=== PATIENT | male | born 1985 | race Two or more races ===

== ENCOUNTER 2018-01-07 05:01 | Emergency (ER) | payer SELFPAY ==
[2018-01-07 05:24] VITALS: BP 131/89
[2018-01-07] MEDS ORDERED: TRANEXAMIC ACID INJ/PF 1,000 MG/10 ML SDV IV PRN ×3 (06:37→08:01)
--- NOTE | 2018-01-07 06:37 | ER Document Report ---
ED Oral Problem - General Mode of Arrival: Ambulatory Information source: Patient TRAVEL OUTSIDE OF THE [place] IN LAST 30 DAYS: No - General Chief Complaint: Mouth Problem Stated Complaint: MOUTH PROBLEM Time Seen by Provider: 01/07/18 06:36 Notes: Patient is a 32-year-old male who presents to the emergency department today with complaints of tooth bleeding. Patient mentions that he had a recent tooth extraction in [place] [facility] but the story is somewhat convoluted and difficult to obtain surrounding this extraction. Patient states he lives here but was "painting" in [place]. Patient denies any fevers or chills. (FIDE HANCOCK) - Related Data Allergies/Adverse Reactions: No Known Allergies Allergy (Unverified 01/07/18 05:20) Past Medical History - General Information source: Patient - Social History Smoking Status: Current Some Day Smoker Cigarette use (# per day): Yes Frequency of alcohol use: Social Drug Abuse: None Lives with: Family Family History: Reviewed & Not Pertinent Patient has suicidal ideation: No Patient has homicidal ideation: No Renal/ Medical History: Denies: Hx Peritoneal Dialysis Review of Systems - Review of Systems Constitutional: No symptoms reported EENT: See HPI, Dental problem Cardiovascular: No symptoms reported Respiratory: No symptoms reported Gastrointestinal: No symptoms reported Genitourinary: No symptoms reported Male Genitourinary: No symptoms reported Musculoskeletal: No symptoms reported Skin: No symptoms reported Hematologic/Lymphatic: No symptoms reported Neurological/Psychological: No symptoms reported -: Yes All other systems reviewed and negative Physical Exam - Vital signs Vitals: Temp Pulse Resp BP Pulse Ox 99.3 F 63 18 131/89 H 96 01/07/18 05:23 01/07/18 05:23 01/07/18 05:23 01/07/18 05:23 01/07/18 05:23 - Notes Notes: Physical Exam: General: Alert, appears well. HEENT: Normocephalic. Atraumatic. PERRLA. Extraocular movements intact. Oropharynx clear. Tooth #30, first molar on the bottom right is actively oozing a slight amount of blood. No evidence of dry socket or infection. No abscess formation. Minimal soft tissue swelling with clot over open area. Neck: Supple. Respiratory: No respiratory distress. Abdominal: Normal Inspection. No distension. Extremities: Moves all four extremities. Neurological: Normal cognition. AAOx4. Normal speech. Psychological: Normal affect. Normal Mood. Skin: Warm. Dry. Normal color. (FIDE HANCOCK) Course - Re-evaluation Re-evalutation: 01/07/18 08:43 Transaxial Elizabeth acid placed on gauze. Patient initially achieved hemostasis and then began to have small amounts of oozing from well-formed blood clots in third molar socket bottom right jaw. Will provide 2 x 2's for compression to achieve hemostasis and patient is to follow-up with dentistry list provided today for evaluation. Return precautions provided (ERNESTINE HE) - Vital Signs Vital signs: Temp Pulse Resp BP Pulse Ox 99.3 F 63 18 131/89 H 96 01/07/18 05:23 01/07/18 05:23 01/07/18 05:23 01/07/18 05:23 01/07/18 05:23 Discharge - Discharge Clinical Impression: bleeding tooth socket History of tooth extraction Qualifiers: Tooth loss class: unspecified tooth loss Qualified Code(s): K08.409 - Partial loss of teeth, unspecified cause, unspecified class Condition: Good Disposition: HOME, SELF-CARE Additional Instructions: Please use gauze provided to apply pressure biting down to prevent bleeding. You need to visit dentistry today per discussion with 1 of the dentistries listed on sheet provided. They will need to ensure you do not have a retained tooth root from your extraction that was performed. Please return to the ED for any concerns. Referrals: [facility] [Provider Group] - Follow up as needed (Please visit today) Scribe Attestation: 01/08/18 15:10 I personally performed the services described documentation, reviewed and edited the documentation which was dictated to describe my presence, and it accurately records my words and actions. (ERNESTINE HE) Scribe Documentation - Scribe Written by Terrancee:: Sudha Shook, 01/07/2018 1003 acting as scribe for :: Koko
[2018-01-07] MEDS ORDERED: ACETAMINOPHEN 325 MG TABLET PO ONE (08:50)
== END 2018-01-07 09:34 | disposition home or self-care (01) ==
LOC: ER 05:01
DX: R58 Hemorrhage, not elsewhere classified (principal); K08.409 Partial loss of teeth, unspecified cause, unspecified class; F17.210 Nicotine dependence, cigarettes, uncomplicated
CPT/HCPCS: 96376; 99282; 96374; J3490